=== PATIENT | male | born 1995 | race Caucasian/White ===

== ENCOUNTER 2017-06-22 13:31 | Outpatient (CLI) | payer BC ==
--- NOTE | 2017-06-22 14:20 | ULT ---
TESTICULAR ULTRASOUND: Date: 06/22/17 COMPARISON: None. HISTORY: Testicular/scrotal pain. TECHNIQUE: Multiplanar Raymundo scale and color Doppler images were obtained in a testicular/scrotal ultrasound. Spe ctral analysis of the Doppler waveforms of the testicles were performed. FINDINGS: The testicles are normal in echogenicity without focal lesions and demonstrate normal symmetric inter nal flow. There are bilateral epididymal cysts. The largest is seen on the left measuring 8.0 mm. The re is a nonspecific hypoechoic region in the right epididymis measuring 7.0 mm in size, which does no t have characteristics of a simple epididymal cyst. No hydrocele is seen. IMPRESSION: 1. No significant testicular abnormality. 2. Bilateral epididymal cysts. 3. Nonspecific hypoechoic region in right epididymis. A follow-up ultrasound in 3 months is recommen ded to ensure stability of the right epididymal hypoechoic region. POS: [facility]
== END 2017-06-22 13:32 | disposition home or self-care (01) ==
LOC: SCSULT 13:31
PROVIDERS: ATTEND Family Medicine
DX: N50.811 Right testicular pain (principal); N50.3 Cyst of epididymis
CPT/HCPCS: 76870; 93976

== ENCOUNTER 2017-08-22 08:25 | Outpatient (CLI) | payer BC, OTHER ==
[2017-08-22] MEDS ORDERED: Iopamidol 370 76% 100 ML VIAL ONE (09:00)
--- NOTE | 2017-08-22 09:22 | CT ---
CT ABDOMEN AND PELVIS WITH ORAL AND IV CONTRAST: Date: 08/22/17 HISTORY: Right lower quadrant pain. FINDINGS: The lung bases are clear. The liver, spleen, pancreas, adrenal glands, and kidneys are normal. No zaheer cified gallstones are seen. No free air, free fluid, or lymphadenopathy is identified. A retroaortic left renal vein is present. The small bowel loops are not abnormally dilated. A low-lying cecum is se en in the deep pelvis. Normal appearing appendix is present. Bony structures are grossly unremarkable . IMPRESSION: Normal exam. POS: [facility]
== END 2017-08-22 08:26 | disposition home or self-care (01) ==
LOC: SCSCT 08:25
PROVIDERS: ATTEND Family Medicine
DX: R10.31 Right lower quadrant pain (principal)
CPT/HCPCS: 74177

== ENCOUNTER 2017-09-09 09:00 | Outpatient (CLI) | payer BC ==
--- NOTE | 2017-09-09 12:05 | ULT ---
ULTRASOUND ABDOMEN: HISTORY: Right-sided abdominal pain. FINDINGS: The liver, spleen, pancreas, gallbladder, kidneys, aorta, and IVC appear normal. No free fluid is se en. IMPRESSION: Normal exam. POS: [facility]
== END 2017-09-09 09:01 | disposition home or self-care (01) ==
LOC: SCSULT 09:00
PROVIDERS: ATTEND Internal Medicine
DX: R10.9 Unspecified abdominal pain (principal)
CPT/HCPCS: 76700

== ENCOUNTER 2019-01-29 10:06 | Outpatient (CLI) | payer BC ==
--- NOTE | 2019-01-29 11:24 | ULT ---
Thyroid ultrasound: 01/29/2019 Comparison: None HISTORY: Evaluate thyroid nodules TECHNIQUE: Multiplanar grayscale sonographic assessment of the thyroid gland obtained. FINDINGS: Thyroid isthmus measures 2 mm in AP dimension. The right lobe measures 4.7 x 1.2 x 1.7 cm and the left lobe measures 4.6 x 1.1 x 1.8 cm. There are 2 tiny cystic areas within the superomedial aspect of the right lobe measuring up to 4-5 mm . No dominant thyroid nodule noted on either side IMPRESSION: TI-RADS Category 2-not suspicious. No further imaging assessment required.
== END 2019-01-29 10:07 | disposition home or self-care (01) ==
LOC: SCSULT 10:06
PROVIDERS: ATTEND Family Medicine
DX: E04.1 Nontoxic single thyroid nodule (principal); F45.8 Other somatoform disorders
CPT/HCPCS: 76536